=== PATIENT | male | born 1965 | race African-American/Black ===

== ENCOUNTER 2017-12-13 09:58 | Emergency (ER) | payer MEDICARE, MEDICAID | END 2017-12-13 10:25 | disposition home or self-care (01) | LOC: MADERS 09:58 | DX: E10.9 Type 1 diabetes mellitus without complications (principal); Z79.899 Other long term (current) drug therapy | CPT/HCPCS: 36416; 99284 ==

== ENCOUNTER 2018-07-17 15:08 | Emergency (ER) | payer MEDICARE, MEDICAID ==
[2018-07-17 15:47] LABS: #Basophils 0.2 thou/uL (0.0-0.2); #Eosinphils 0.1 thou/uL (0.0-0.7); #Lymphocytes 2.7 thou/uL (1.20-3.40); #Monocytes 0.6 thou/uL (0.11-0.59); #Neutrophils 4.8 thou/uL (1.40-6.50); %Basophils 2.2 % (0.0-1.0); %Eosinophils 1.1 % (0.0-10.0); %Lymphocytes 32.4 % (21.0-51.0); %Monocytes 6.8 % (0.0-10.0); %Neutrophils 57.6 % (42.0-75.0); Hemoglobin 16.1 g/dL (14.0-18.0); Mean Corpuscular Hemoglobin 25.1 pg (27.0-31.0); Mean Corpuscular Volume 81.1 fL (78.0-98.0); Mean Platelet Volume 9.1 fL (7.4-10.4); Platelet Count 307 thou/uL (130-400); RBC Distribution Width 14.9 % (11.5-14.5); Red Blood Cell (RBC) Count 6.41 mill/uL (4.70-6.10); White Blood Cell (WBC) Count 8.3 thou/uL (4.8-10.8)
[2018-07-17 15:49] LABS: INR-International Normal Ratio 0.9; PTT 29.7 SEC (22.9-36.1); Prothrombin Time 12.3 SEC (12.0-14.7)
--- NOTE | 2018-07-17 15:50 | CT ---
HEAD CT WITHOUT CONTRAST: HISTORY: Left facial droop since 4:00 p.m. yesterday. COMPARISON: None. TECHNIQUE: A noncontrast head CT is performed in the axial plane. FINDINGS: Limited evaluation of the left middle cranial fossa due to beam attenuation artifact, secondary to th e patient's left calvarium touching the side of the bore. Loss of carpenter white matter differentiation in the left temporal lobe may be artifactual. Better interrogation of the brain parenchyma with MRI is recommended. No parenchymal hemorrhage. No extraaxial hematoma. No midline shift. The basilar cisterns are brody nt. Brain volume is age appropriate. The calvarium is intact. Adequate aeration of the sinuses and mastoid air cells. IMPRESSION: Probable artifact resulting in loss of carpenter white matter differentiation and left middle cranial dariela a. Further evaluation with MRI is recommended. As per history, the patient is nearly 24 hours since the onset of the left-sided facial droop. POS: [facility]
[2018-07-17 15:59] LABS: ALT (SGPT) 19 U/L (8-55); AST (SGOT) 18 U/L (5-34); Albumin 4.5 g/dL (3.5-5.0); Alkaline Phosphatase 79 U/L (40-150); Anion Gap 15 mmol/L (10-20); BUN (Urea Nitrogen) 17 mg/dL (8.4-25.7); Bilirubin, Total 0.4 mg/dL (0.2-1.2); Calc. Creatinine Clearance 0 mL/min (70-130); Calcium 9.9 mg/dL (7.8-10.44); Carbon Dioxide 25 mmol/L (22-29); Chloride 106 mmol/L (98-107); Estimated GFR-MDRD 62; Globulin 4.3 g/dL (2.4-3.5); Glucose 95 mg/dL (70-105); Potassium 3.6 mmol/L (3.5-5.1); Protein, Total 8.8 g/dL (6.0-8.3); Sodium 142 mmol/L (136-145)
[2018-07-17 16:01] LABS: CKMB 2.7 ng/mL (0-6.6); Troponin I Less than 0.010 ng/mL (< 0.028)
[2018-07-17] MEDS ORDERED: predniSONE 20 MG TAB ONE (16:14)
== END 2018-07-17 16:21 | disposition home or self-care (01) ==
LOC: MADERS 15:08
DX: G51.0 Bell's palsy (principal); E11.9 Type 2 diabetes mellitus without complications; M10.9 Gout, unspecified; I10 Essential (primary) hypertension; Z79.899 Other long term (current) drug therapy
CPT/HCPCS: 36416; 70450; 80053; 82553; 84484; 85025; 85610; 85730; J7506

== ENCOUNTER 2021-08-19 13:47 | Emergency (ER) | payer MEDICARE, MEDICAID | END 2021-08-19 16:10 | disposition home or self-care (01) | LOC: MADERS 13:47 | DX: E11.649 Type 2 diabetes mellitus with hypoglycemia without coma (principal); I10 Essential (primary) hypertension; Z79.84 Long term (current) use of oral hypoglycemic drugs; Z79.899 Other long term (current) drug therapy | CPT/HCPCS: 99283 ==

== ENCOUNTER 2022-04-08 09:42 | Emergency (ER) | payer MEDICARE, MEDICAID ==
[2022-04-08] MEDS ORDERED: Boostrix 0.5 ML (Tdap) VIAL ONE (10:27)
== END 2022-04-08 10:38 | disposition home or self-care (01) ==
LOC: MADERS 09:42
DX: L03.012 Cellulitis of left finger (principal); E78.5 Hyperlipidemia, unspecified; E11.9 Type 2 diabetes mellitus without complications; I10 Essential (primary) hypertension; Z79.899 Other long term (current) drug therapy
CPT/HCPCS: 90471; 90715; 99283